=== PATIENT | male | born 1980 | race Caucasian/White ===

== ENCOUNTER 2020-11-28 16:43 | Emergency (ER) | payer MEDICARE ==
[2020-11-28 17:43] LABS: RED BLOOD COUNT 4.9 M/UL (4.20-5.50); WHITE BLOOD COUNT 16.4 K/UL (4.5-11.0)
[2020-11-28 17:54] LABS: BUN/CREATININE RATIO 9 (0-10)
[2020-11-28] MEDS ORDERED: AUGMENTIN 875-1 EACH PO (18:58)
== END 2020-11-28 19:17 | disposition home or self-care (01) ==
LOC: ER1 16:43
PROVIDERS: Family Medicine
DX: L03.116 Cellulitis of left lower limb (principal); I89.0 Lymphedema, not elsewhere classified; I10 Essential (primary) hypertension; F17.210 Nicotine dependence, cigarettes, uncomplicated; Z79.899 Other long term (current) drug therapy
CPT/HCPCS: 80053; 83605; 85025; 86140; 96365; 99283; J0696

== ENCOUNTER 2020-12-03 18:46 | Emergency (ER) | payer MEDICARE ==
[~2020-12-03 18:46] MED LIST: AUGMENTIN 875-1 EACH PO
== END 2020-12-03 20:30 | disposition left against medical advice (07) ==
LOC: ER1 18:46
DX: Z53.21 Procedure and treatment not carried out due to patient leaving prior to being seen by health care provider (principal)